=== PATIENT | female | born 1945 | race Caucasian/White ===

== ENCOUNTER → 2018-09-19 | Outpatient (CLI) | payer MEDICARE, OTHER ==
--- NOTE | 2018-09-19 11:22 | RAD ---
Examination: CT chest without contrast HISTORY: History of dyspnea, bronchitis COMPARISON: None available Technique: Axial CT images of the chest were performed without contrast. Coronal and sagittal reformats are performed Exposure: One or more of the following individualized dose reduction techniques were utilized for this examination: 1. Automated exposure control 2. Adjustment of the mA and/or kV according to patient size 3. Use of iterative reconstruction technique Findings: There is a 1.7 cm hypodense nodule identified in the right lobe of the thyroid gland. The central airways are patent Mild cardiomegaly. Mild coronary artery calcifications. Small hiatal hernia is identified. No radiologically significant mediastinal lymphadenopathy is identified. The descending aorta is tortuous. There is a 4 mm solid nodule identified in the left upper lobe of the lung. Faint patchy airspace opacities identified in the left lower lobe of the lung. No evidence of pleural effusion or pneumothorax. Moderate degenerative changes thoracic spine The visualized noncontrasted liver, spleen, adrenals grossly appears unremarkable. IMPRESSION: 1. 4 mm solid nodule identified in the left upper lobe of the lung. Follow-up per Fleischner Society guidelines with a follow-up CT in 6-12 months. 2. Patchy left lung base airspace opacities likely atelectasis or infiltrates. Follow-up to resolution. 3. 1.7 cm hypodense nodule identified in the right lobe of thyroid gland. Recommend follow-up nonemergent thyroid ultrasound. Electronically signed by: Abdulaziz Ramirez MD (09/19/2018 11:18 AM) [id number]
== END | disposition home or self-care (01) ==
LOC: CT 09:09
PROVIDERS: ATTEND Nurse Practitioner Adult Health
DX: R91.1 Solitary pulmonary nodule (principal); E04.1 Nontoxic single thyroid nodule; K44.9 Diaphragmatic hernia without obstruction or gangrene; I51.7 Cardiomegaly; I25.10 Atherosclerotic heart disease of native coronary artery without angina pectoris
CPT/HCPCS: 71250

== ENCOUNTER → 2018-10-04 | Outpatient (CLI) | payer MEDICARE, OTHER ==
--- NOTE | 2018-10-04 13:08 | RAD ---
Indication: Thyroid nodules TECHNIQUE: Ultrasound thyroid COMPARISON: None FINDINGS: Left side: The left thyroid lobe measures 3.7 x 1.5 x 1.4 cm. There is a solid isoechoic nodule in the upper pole of the left thyroid lobe measuring 0.9 x 0.8 x 0.6 cm with punctate echogenic foci and ill-defined margin (category TR 4). Multiple anechoic and hypoechoic nodules are seen in the left thyroid lobe, the largest measuring 0.3 x 0.4 x 0.2 cm (category TR 4). Right side: The right thyroid lobe measures 5.0 x 1.5 x 1.7 cm. There is an oval-shaped hypoechoic was described nodule in the upper pole of the right thyroid lobe measuring 0.8 x 0.5 x 0.3 cm (category TR 4). There is an isoechoic solid nodule measuring 1.4 x 1.3 x 1.0 cm with ill-defined margins in the inferior pole of the thyroid lobe (category TR3). There is a hypoechoic oval-shaped nodule in the mid thyroid lobe measuring 1.2 x 0.7 x 0.7 cm with internal punctate calcifications and posterior shadowing (category TR 5). The isthmus measures 4 mm in thickness and is within normal limits. IMPRESSION: Bilateral thyroid nodules as described above. According to ACR recommendation, -For TR 5 category nodule, consider FNA if >= 1 cm and Follow if >=0.5 cm. -For TR 4 category nodule, consider FNA if >=1.5 cm and Follow if >=1 cm. -For TR 3 category nodule, consider FNA if >=2.5 cm and Follow if >= 1.5 cm. Electronically signed by: Cameron Oquendo DO (10/04/2018 1:04 PM) [id number]
== END | disposition home or self-care (01) ==
LOC: US 10:50
PROVIDERS: ATTEND Nurse Practitioner Adult Health
DX: E04.2 Nontoxic multinodular goiter (principal)
CPT/HCPCS: 76536

== ENCOUNTER → 2018-11-08 | Outpatient (CLI) | payer MEDICARE, OTHER ==
--- NOTE | 2018-11-08 10:10 | RAD ---
CT HEAD WO CONTRAST History: Previous stroke in 2014, headaches the last week Comparison: None. Technique: Noncontrast CT imaging was performed of the head. Exposure: One or more of the following individualized dose reduction techniques were utilized for this examination: 1. Automated exposure control 2. Adjustment of the mA and/or kV according to patient size 3. Use of iterative reconstruction technique. Findings: No acute extra-axial or parenchymal hemorrhage is identified. There is no significant intra-axial mass effect, midline shift, or extra-axial fluid collection. The conner-white differentiation of the major vascular territories is preserved. There is scattered overall mild low-density of the supratentorial parenchyma bilaterally. There is evidence for calcification carotid siphons bilaterally. The ventricles, sulci, and cisterns are within normal limits in size and configuration. The mastoid air cells and the visualized paranasal sinuses are aerated. No acute calvarial abnormality is identified. Impression: 1. No acute radiographic abnormality is identified by CT. There is scattered ill-defined low-density of the supratentorial parenchyma bilaterally probably due to to chronic microvascular ischemic disease in a patient this age. If there is clinical suspicion for evolving or acute ischemia, follow-up CT or MRI could be beneficial. Electronically signed by: Rafael William MD (11/08/2018 10:06 AM) [id number]
== END | disposition home or self-care (01) ==
LOC: CT 09:12
PROVIDERS: ATTEND Nurse Practitioner Family
DX: I67.82 Cerebral ischemia (principal); Z86.73 Personal history of transient ischemic attack (TIA), and cerebral infarction without residual deficits
CPT/HCPCS: 70450

== ENCOUNTER → 2019-06-21 | Outpatient (CLI) | payer MEDICARE, OTHER ==
[~2019-06-21] MED LIST: IOHEXOL 350 MG/ML 100 ML VIAL. IV ONE
--- NOTE | 2019-06-21 08:45 | RAD ---
PQRS Compliance Statement: One or more of the following individualized dose reduction techniques were utilized for this examination: 1. Automated exposure control 2. Adjustment of the mA and/or kV according to patient size 3. Use of iterative reconstruction technique CT angiography chest with contrast 06/21/2019 8:00 AM INDICATION: Cough COMPARISON: CT chest 09/29/2018 TECHNIQUE: Axial CT images of the chest were obtained after the intravenous administration of nonionic contrast. Coronal and sagittal reformats are provided. Maximum intensity projection images of the thoracic vasculature are provided. FINDINGS: Stable heterogeneous appearance of the thyroid gland with a right thyroid nodule measuring 9 mm. Stable enlarged AP window lymph node measuring 2.3 x 2.1 cm (series 4, image 44) right hilar lymph node measures 6 mm (4, image 70). Left hilar lymph node measures 7 mm (series 4, image 60). The heart size is within normal limits. No significant pericardial effusion. Thoracic aorta is normal in caliber, tortuous in course. There is adequate opacification of the pulmonary arterial system. There there are no filling defects within the pulmonary arterial system to suggest acute or chronic pulmonary embolus. There are no suspicious solid noncalcified pulmonary nodules. Bibasilar subsegmental atelectasis. There are no pulmonary infiltrates. There are no pleural effusions. No pulmonary vascular congestion or pneumothorax. Visualized portions of the upper abdomen are within normal limits. Small hiatal hernia. Gallbladder surgically absent. No suspicious osseous lesions are visualized. IMPRESSION: There is no evidence for acute or chronic pulmonary embolism. There is bibasilar subsegmental atelectasis. Stable AP window soft tissue mass, suspected to represent a lymph node measuring 2.3 x 2.1 cm. This finding is not significantly changed dating back to 09/19/2018 although evaluation is limited by lack of IV contrast on prior examination. Finding remains indeterminate. Further characterization with PET CT may be of benefit versus endobronchial ultrasound. Electronically signed by: Asia Graves MD (06/21/2019 8:42 AM) [facility]
== END | disposition home or self-care (01) ==
LOC: CT 07:44
PROVIDERS: ATTEND Family Medicine
DX: J45.991 Cough variant asthma (principal); J98.11 Atelectasis; K44.9 Diaphragmatic hernia without obstruction or gangrene
CPT/HCPCS: 71275; Q9967

== ENCOUNTER → 2020-04-11 | Outpatient (CLI) | payer MEDICARE, OTHER ==
[~2020-04-11] MED LIST changes: +IOHEXOL 240 MG/ML 50ML VIAL. ONE; -IOHEXOL 350 MG/ML 100 ML VIAL. IV ONE
[2020-04-11 09:10] LABS: CREATININE 0.9 mg/dL (0.6-1.0)
[2020-04-11] MEDS: IOHEXOL 300 MG/ML 75 ML VIAL. IV ONE (09:21)
[2020-04-11] MEDS: IOHEXOL 240 MG/ML 50ML VIAL. PO ONE (09:22)
--- NOTE | 2020-04-11 17:16 | RAD ---
PQRS Compliance Statement: One or more of the following individualized dose reduction techniques were utilized for this examination: 1. Automated exposure control 2. Adjustment of the mA and/or kV according to patient size 3. Use of iterative reconstruction technique CT ABD PELV W/ORAL IV CONTRAST Clinical Indication: Reason: DYSPHAGIA, COUGH HOARSENESS AFTER EATING AND DRINKING Comparison: None. Technique: Helical CT imaging of the abdomen and pelvis is performed after 75 cc of Omnipaque 300 IV contrast. Oral contrast also administered. Findings: Minimal atelectasis or scarring in the lung bases. Cardiac size is normal. Cholecystectomy. The liver, spleen, pancreas, adrenal glands, abdominal aorta, and kidneys are normal. Haziness of the central mesentery, a nonspecific finding. There is no abdominal adenopathy or free fluid. There is no hiatal hernia. Stomach unremarkable. There is no dilated small bowel. Distal colon is decompressed, limiting evaluation. There is no colon wall thickening. Mild to moderate stool in the colon. Appendix is not seen, no secondary signs of appendicitis. The urinary bladder is normal. Hysterectomy. No pelvic free fluid. Mild grade 1 anterolisthesis of L5 on S1. No spondylolysis. Disc space narrowing and vacuum disc phenomenon L5/S1. Hemangioma of the T9 vertebral body. IMPRESSION: 1. No acute abdominal or pelvic abnormality. 2. Mild to moderate colon stool volume. Electronically signed by: Howard Lu MD (04/11/2020 5:13 PM) [id number]
== END | disposition home or self-care (01) ==
LOC: CT 08:01
PROVIDERS: ATTEND Internal Medicine Gastroenterology
DX: R49.0 Dysphonia (principal); R05 Cough; M43.17 Spondylolisthesis, lumbosacral region; M48.07 Spinal stenosis, lumbosacral region; Z90.711 Acquired absence of uterus with remaining cervical stump
CPT/HCPCS: 36415; 74177; 82565; 84520; Q9966; Q9967

== ENCOUNTER → 2020-04-22 | Outpatient (CLI) | payer MEDICARE, OTHER ==
[~2020-04-22] MED LIST changes: -IOHEXOL 240 MG/ML 50ML VIAL. ONE; +IOHEXOL 300 MG/ML 75 ML VIAL. IV ONE
--- NOTE | 2020-04-22 12:46 | RAD ---
PQRS Compliance Statement: One or more of the following individualized dose reduction techniques were utilized for this examination: 1. Automated exposure control 2. Adjustment of the mA and/or kV according to patient size 3. Use of iterative reconstruction technique CT CHEST W/CONTRAST Clinical Indication: Reason: DYSPHASIA COUGH HOARSENESS / Spl. Instructions: / History: Comparison: CT chest with contrast, June 21, 2019. TECHNIQUE: Helical CT imaging of the chest is performed after 90 cc of Omnipaque 350 IV contrast. Findings: There is 1 cm right thyroid nodule. AP window nodule measures 1.7 x 2.7 cm, previously 1.7 x 2.6 cm, unchanged in size. Nodule is increased in density compared to the prior study. There is no hilar adenopathy. No central pulmonary embolus. No thoracic aortic dissection. Great vessels are normal caliber. Cardiac size is normal, no pericardial effusion. The central airways are patent. No pleural abnormality is seen. 3 mm nodule in the left upper lobe is stable compared to September 2018, therefore considered benign, image 33. Mild atelectasis in the bilateral lower lobes. No lung consolidation. Cholecystectomy. No acute bone abnormality. Stable T9 vertebral body hemangioma. IMPRESSION: 1. Soft tissue nodule at the AP window is stable in size. The nodule is hyperdense. The density is similar to the thyroid. Ectopic thyroid tissue is another consideration. Nuclear medicine thyroid scan could evaluate. 2. Stable right thyroid nodule. Electronically signed by: Howard Lu MD (04/22/2020 12:43 PM) [id number]
== END | disposition home or self-care (01) ==
LOC: CT 08:44
PROVIDERS: ATTEND Internal Medicine Gastroenterology
DX: E04.1 Nontoxic single thyroid nodule (principal); J98.11 Atelectasis; D18.09 Hemangioma of other sites; R05 Cough; R13.10 Dysphagia, unspecified; R49.0 Dysphonia; Z90.49 Acquired absence of other specified parts of digestive tract
CPT/HCPCS: 71260; Q9967

== ENCOUNTER → 2021-04-15 | Outpatient (CLI) | payer MEDICARE, OTHER ==
--- NOTE | 2021-04-15 15:53 | RAD ---
EXAM: Bilateral lower extremity venous Doppler sonogram. HISTORY: Pain and swelling. Palpable lump. TECHNIQUE: Goodson scale and color Doppler sonographic evaluation of the left lower extremity veins with spectral waveform analysis was performed. FINDINGS: There is normal color flow, normal compressibility and there are normal spectral waveforms in the common femoral, superficial femoral, popliteal, posterior tibial and greater saphenous veins. There is an ill-defined nonvascular nodule isoechoic to fat within the distal medial calf at the site of palpable concern measuring 1.2 cm. IMPRESSION: 1. No Doppler evidence of lower extremity deep venous thrombosis. 2. 1.2 cm solid-appearing nonvascular nodule at the site of palpable concern within the medial distal calf. This may be due to a hematoma or fat necrosis. Continued clinical follow-up of palpable abnorm ality is recommended. Sonographic imaging can be performed in 3 months if there is continuing concern . Electronically signed by: Juanita Graham MD (04/15/2021 3:51 PM) [id number]
== END ==
LOC: US 15:06
PROVIDERS: ATTEND Family Medicine
DX: I82.492 Acute embolism and thrombosis of other specified deep vein of left lower extremity (principal); M79.662 Pain in left lower leg
CPT/HCPCS: 93971

== ENCOUNTER 2021-05-04 20:40 | Emergency (ER) | payer MEDICARE, OTHER ==
[~2021-05-04] VITALS: Ht 160 cm; Wt 81.9 kg
--- NOTE | 2021-05-04 20:57 | PHYS DOC ---
Adult General Chief Complaint Chief Complaint: LOWEREXTREMITY INJURY HPI HPI Patient is a 75-year-old female presents with right ankle pain after twisting it while walking down the stairs just before coming to the emergency department. States that pain is 7 out of 10, sharp in nature with no radiation. States she is unable to walk due to the pain. Denies any other injuries. Fentanyl via EMS on the way in. Review of Systems Review of Systems Review of systems otherwise unremarkable except noted in HPI Current Medications Current Medications Current Medications Medications (Trade) Dose Ordered Sig/Charleen Start Time Stop Time Status Last Admin Dose Admin Acetaminophen (Tylenol) 1,000 mg 1X ONCE 05/04/21 21:00 05/04/21 21:01 UNV Ibuprofen (Motrin) 600 mg 1X ONCE 05/04/21 21:00 05/04/21 21:01 UNV Allergies Allergies Allergies Coded Allergies Type Severity Reaction Last Updated Verified No Known Drug Allergies 06/21/19 No Physical Exam Physical Exam Constitutional: Well developed, well nourished, no acute distress, non-toxic appearance. [] HENT: Normocephalic, atraumatic, Eyes: conjunctiva normal, no discharge. [] Neck: Normal range of motion, no tenderness, supple, no stridor. [] Cardiovascular:Heart rate regular rhythm, no murmur [] Lungs & Thorax: Bilateral breath sounds clear to auscultation [] Back: No tenderness, Extremities: Right ankle tenderness, redness and swelling as well as some bruising. Neurovascular exam intact. Neurologic: Alert and oriented X 3, no focal deficits noted. [] Psychologic: Affect normal, judgement normal, mood normal. [] EKG EKG [] Radiology/Procedures Radiology/Procedures [] Exam: Right tibia and fibula 2 views. Right ankle 3 views INDICATION: Fall, ankle pain TECHNIQUE: Frontal, lateral oblique views the right ankle. Frontal and lateral views of the right tibia and fibula Comparisons: None FINDINGS: Ankle: There is an obliquely oriented fracture through the distal fibula. There is a mildly displaced fracture to the posterior malleolus and moderately displaced fracture to the medial malleolus. There is dissociation at the tibiotalar joint space. Mild surrounding soft tissue swelling is noted. Diffuse osteopenia. Bone mineralization is normal. Tib-fib: No other fractures are identified. Soft tissues are unremarkable. Bone mineralization is normal. IMPRESSION: 1. Comminuted trimalleolar fracture of the right ankle with dissociation at the tibiotalar joint space. 2. No other fractures identified at the right tibia or fibula Electronically signed by: Dusty Michel MD (05/04/2021 9:34 PM) [facility] 2. Patient prepped for procedural sedation. Paperwork signed/consent signed. Room prepped with Ambu bag, suction. Fluid bolus given. Timeout performed with attending physician, RN and research laboratory technician in the room. Patient sedated on ketamine. Reduction performed successfully. Patient tolerated well. Patient on monitor including end-tidal CO2 the entire time. Patient monitored post sedation. Vital signs returned to normal. Patient alert and oriented in no acute distress. Patient able to take p.o. Pain controlled. Heart Score C/O Chest Pain: No Risk Factors: Risk Factors: DM, Current or recent (<one month) smoker, HTN, HLP, family history of CAD, obesity. Risk Scores: Risk Factors: DM, Current or recent (<one month) smoker, HTN, HLP, family history of CAD, obesity. Course & Med Decision Making Course & Med Decision Making Patient is a 75-year-old female who presents with right ankle pain. Vital signs not concerning. Physical exam noted above. Given Tylenol, ibuprofen and ice pack. Imaging showing trimalleolar fracture. Given morphine for pain control. Discussed patient with [facility] orthopedics who recommended reduction and follow-up in the morning with their clinic. [] Dragon Disclaimer Dragon Disclaimer This electronic medical record was generated, in whole or in part, using a voice recognition dictation system. Departure Departure: Impression: Primary Impression: Trimalleolar fracture of ankle, closed Disposition: HOME / SELF CARE / HOMELESS Condition: IMPROVED Referrals: NAYLA HERNANDEZ MD (PCP) Patient Instructions: RICE - Routine Care for Injuries, Trimalleolar Fracture, Ankle, Adult, Displaced (ORIF), Trimalleolar Fracture, Ankle, Adult, Displaced (ORIF), Care After Additional Instructions: Thank you for coming into the emergency department tonight and allowing us to take care of you. Please read the attached information carefully to go back over things we discussed. Please continue to use Tylenol, ibuprofen and ice as needed. You can also use your prescription pain medicine as needed. Please do not exceed 3000 mg of Tylenol daily. You are also given crutches, please do not walk anywhere without using your crutches as you do not want to put weight on this ankle. Please call [facility] orthopedic group first thing in the morning at [phone] to set up your follow-up appointment this week for continued evaluation and treatment and discussion on need for surgical intervention. Please also update your primary care physician first thing in the morning. Please come back to the ED immediately with new or concerning symptoms as discussed. Scripts Hydrocodone Bit/Acetaminophen (HYDROCODONE-APAP 5-325 ) 1 Each Tablet 1 TAB PO Q4-6HRS PRN for fracture pain for 5 Days, #30 TAB 0 Refills Prov: MARAL FAY MD 05/05/21 MARAL FAY MD May 04, 2021 20:57
[2021-05-04] MEDS ORDERED: IBUPROFEN 600 MG TABLET. PO ONE (21:00)
[2021-05-04] MEDS ORDERED: ACETAMINOPHEN 500 MG TABLET PO ONE (21:00)
--- NOTE | 2021-05-04 21:36 | RAD ---
Exam: Right tibia and fibula 2 views. Right ankle 3 views INDICATION: Fall, ankle pain TECHNIQUE: Frontal, lateral oblique views the right ankle. Frontal and lateral views of the right tib ia and fibula Comparisons: None FINDINGS: Ankle: There is an obliquely oriented fracture through the distal fibula. There is a mildly displaced fractu re to the posterior malleolus and moderately displaced fracture to the medial malleolus. There is dis sociation at the tibiotalar joint space. Mild surrounding soft tissue swelling is noted. Diffuse oste openia. Bone mineralization is normal. Tib-fib: No other fractures are identified. Soft tissues are unremarkable. Bone mineralization is normal. IMPRESSION: 1. Comminuted trimalleolar fracture of the right ankle with dissociation at the tibiotalar joint spa ce. 2. No other fractures identified at the right tibia or fibula Electronically signed by: Dusty Michel MD (05/04/2021 9:34 PM) AN[facility]
[2021-05-04] MEDS ORDERED: ONDANSETRON PF 4 MG/2 ML VIAL. IVP ONE (22:00)
[2021-05-04] MEDS ORDERED: MORPHINE SULFATE 4 MG/ML DISP.SYRIN. IV ONE (22:00)
[2021-05-04 22:20] LABS: BASO % 1 % (0-3); EOS % 1 % (0-3); HEMOGLOBIN 13.5 g/dL (12.0-15.5); LYMPH # 1.5 x10^3/uL (1.0-4.8); LYMPH % 18 % (24-48); MEAN CORPUSCULAR HEMOGLOBIN 30 pg (25-35); MEAN CORPUSCULAR HGB CONC 33 g/dL (31-37); MEAN CORPUSCULAR VOLUME 92 fL (79-100); MONO # 0.6 x10^3/uL (0.0-1.1); MONO % 7 % (0-9); NEUT # 6.3 x10^3uL (1.8-7.7); NEUT % 75 % (31-73); PLATELET COUNT 168 x10^3/uL (140-400); RED BLOOD COUNT 4.47 x10^6/uL (3.50-5.40); RED CELL DISTRIBUTION WIDTH 13.7 % (11.5-14.5); WHITE BLOOD COUNT 8.4 x10^3/uL (4.0-11.0)
[2021-05-04 22:30] LABS: CALCIUM 8.9 mg/dL (8.5-10.1); CREATININE 0.7 mg/dL (0.6-1.0); GFR 81.4; POTASSIUM 3.5 mmol/L (3.5-5.1)
[2021-05-04] MEDS ORDERED: KETAMINE HCL 500 MG/10 ML VIAL. IV ONE (22:30)
[2021-05-05] MEDS ORDERED: MIDAZOLAM HCL PF 5 MG/5 ML VIAL. IV ONE (01:00)
[2021-05-05] MEDS ORDERED: MORPHINE SULFATE 4 MG/ML DISP.SYRIN. IV ONE (01:30)
[2021-05-05] MEDS ORDERED: HYDR-2155 PO (02:32)
[2021-05-05] MEDS ORDERED: METOCLOPRAMIDE HCL 10 MG/2 ML VIAL. ONE (02:42)
[2021-05-05] MEDS ORDERED: METOCLOPRAMIDE HCL 10 MG/2 ML VIAL. IVP ONE (03:00)
--- NOTE | 2021-05-05 03:09 | RAD ---
XR EXAM OF ANKLE_RIGHT 3VIEWS Clinical Indication: Reason: post redux / Spl. Instructions: / History: Comparison: None. Findings: Trimalleolar fracture is redemonstrated. There has been reduction and casting. The tibiotalar dissoci ation is improved. The talus is less laterally displaced in relation to the distal tibia. The medial malleolus fracture is less displaced. Angulation of the distal fibular fracture is improved. Limited evaluation of soft tissues. IMPRESSION: 1. Post reduction tibiotalar dissociation is mildly improved. 2. Comminuted trimalleolar fracture. Electronically signed by: Howard Lu MD (05/05/2021 3:07 AM) [facility]
[2021-05-05] MEDS ORDERED: HYDROcodone/APAP 5/325MG 1 TAB TABLET ONE (03:56)
[2021-05-05] MEDS ORDERED: HYDROcodone/APAP 5/325MG 1 TAB TABLET PO ONE (04:00)
[2021-05-05 04:14] VITALS: BP 111/70
== END 2021-05-05 04:30 | disposition home or self-care (01) ==
LOC: ER 20:40
DX: S82.851A Displaced trimalleolar fracture of right lower leg, initial encounter for closed fracture (principal); X50.9XXA Other and unspecified overexertion or strenuous movements or postures, initial encounter; Y93.01 Activity, walking, marching and hiking; Y92.89 Other specified places as the place of occurrence of the external cause; Y99.8 Other external cause status
CPT/HCPCS: 27818; 36415; 73590; 73610; 80048; 85025; 96374; 96375; 96376; 99285; J2250; J2270; J2405; J2765

== ENCOUNTER → 2021-06-27 | Outpatient (CLI) | payer MEDICARE, OTHER ==
[~2021-06-27] MED LIST changes: +HYDR-2155 PO; -IOHEXOL 300 MG/ML 75 ML VIAL. IV ONE
--- NOTE | 2021-06-27 16:47 | RAD ---
EXAM: 3 views of the right ankle DATE: 06/27/2021 1:24 PM INDICATION: Reason: 6 WEEK STATUS POST ANKLE SURGERY / Spl. Instructions: / History: COMPARISON: 06/03/2021 05/05/2021 FINDINGS/ IMPRESSION: Trimalleolar right ankle fracture post reduction and fixation with 2 syndesmotic screws and lateral f ibular screw plate in stable alignment without definite hardware complication. Alignment is stable. D ecreased bone mineral density. Electronically signed by: Yariel Peters MD (06/27/2021 4:45 PM) [id number]
== END ==
LOC: RAD 13:08
PROVIDERS: ATTEND Podiatrist
DX: S82.851D Displaced trimalleolar fracture of right lower leg, subsequent encounter for closed fracture with routine healing (principal); X58.XXXD Exposure to other specified factors, subsequent encounter
CPT/HCPCS: 73610

== ENCOUNTER → 2021-08-01 | Outpatient (CLI) | payer MEDICARE, OTHER ==
--- NOTE | 2021-08-01 14:13 | RAD ---
EXAM: Right ankle, 3 views. HISTORY: Fracture. COMPARISON: 06/27/2021 FINDINGS: 3 views of the right ankle are obtained. There is internal fixation of trimalleolar fractur es. The fracture lines are no longer seen. The ankle mortise is intact. There is suspected disuse ost eopenia. IMPRESSION: Internal fixation of suspected healed or nearly healed trimalleolar fractures. Suspected disuse osteopenia. Electronically signed by: Juanita Graham MD (08/01/2021 2:10 PM) [id number]
== END ==
LOC: RAD 13:41
PROVIDERS: ATTEND Podiatrist
DX: S82.851D Displaced trimalleolar fracture of right lower leg, subsequent encounter for closed fracture with routine healing (principal); X58.XXXD Exposure to other specified factors, subsequent encounter
CPT/HCPCS: 73610

== ENCOUNTER → 2021-09-01 | Outpatient (CLI) | payer MEDICARE, OTHER ==
--- NOTE | 2021-09-01 10:44 | RAD ---
EXAM: Right ankle, 3 views. HISTORY: Fracture fixation. COMPARISON: 08/01/2021 FINDINGS: 3 views of the right ankle are obtained. There is internal fixation of trimalleolar fractur es. The ankle mortise is intact. There is no osteochondral lesion. There is suspected disuse osteopen ia. There is mild soft tissue swelling. IMPRESSION: Internal fixation of healed or nearly healed trimalleolar fractures. Suspected disuse ost eopenia. Electronically signed by: Juanita Graham MD (09/01/2021 10:42 AM) [id number]
== END ==
LOC: RAD 10:02
PROVIDERS: ATTEND Podiatrist
DX: S82.851D Displaced trimalleolar fracture of right lower leg, subsequent encounter for closed fracture with routine healing (principal); M79.89 Other specified soft tissue disorders; X58.XXXD Exposure to other specified factors, subsequent encounter
CPT/HCPCS: 73610

== ENCOUNTER → 2021-11-03 | Outpatient (CLI) | payer MEDICARE, OTHER ==
--- NOTE | 2021-11-03 10:23 | RAD ---
EXAM: Right ankle, 3 views. HISTORY: Pain. Fracture fixation. COMPARISON: 09/01/2021 FINDINGS: 3 views of the right ankle are obtained. There is internal fixation of trimalleolar fractur es in anatomic alignment. Has been interval healing along the fracture lines. The ankle mortise is in tact. There is no osteochondral lesion. There is mild medial soft tissue prominence. There is suspect ed bone demineralization. IMPRESSION: Internal fixation of suspected healed trimalleolar fractures. Mild medial compartment sof t tissue swelling. Bone demineralization. Electronically signed by: Juanita Graham MD (11/03/2021 10:20 AM) [id number]
== END ==
LOC: RAD 09:46
PROVIDERS: ATTEND Podiatrist
DX: S82.851D Displaced trimalleolar fracture of right lower leg, subsequent encounter for closed fracture with routine healing (principal); M79.89 Other specified soft tissue disorders; X58.XXXD Exposure to other specified factors, subsequent encounter
CPT/HCPCS: 73610

== ENCOUNTER → 2022-02-02 | Outpatient (CLI) | payer MEDICARE, OTHER ==
--- NOTE | 2022-02-02 11:36 | RAD ---
XR EXAM OF ANKLE_RIGHT 3VIEWS History: Reason: 9 MONTH FOLLOW UP FX / Spl. Instructions: / History: Technique: 3 views right ankle Comparison: November 03, 2019 Findings: Internal fixation distal fibula, medial malleolus and posterior malleolus. Unchanged alignment. Synde smotic screws noted. Mild lucency of the superior syndesmotic screw at the fibular aspect. The tibial aspect does not demonstrate lucency. Findings are similar compared to prior. No acute fracture. Symm etric ankle mortise. Mild ankle DJD. Impression: 1. Internal fixation healed trimalleolar fractures. Lucency surrounding the fibular aspect of the law perior syndesmotic screw, may indicate loosening. 2. Mild right ankle DJD. Electronically signed by: Ralph Jensen DO (02/02/2022 11:34 AM) [id number]
== END ==
LOC: RAD 09:12
PROVIDERS: ATTEND Podiatrist
DX: S82.851D Displaced trimalleolar fracture of right lower leg, subsequent encounter for closed fracture with routine healing (principal); M19.071 Primary osteoarthritis, right ankle and foot; X58.XXXD Exposure to other specified factors, subsequent encounter
CPT/HCPCS: 73610